=== PATIENT | male | born 1950 | race Caucasian/White ===

== ENCOUNTER 2020-01-03 05:21 | Inpatient (IN) | payer OTHER, MEDICARE ==
[~2020-01-03] VITALS: Ht 175.3 cm; Wt 89.1 kg
[~2020-01-03 05:21] MED LIST: ACET-812 PO; ALLO300T2 PO; ATOR20TA66 PO; FISH12002 PO; LOSA50TA64 PO; NIAC500T23 PO; VIT1CAPS46 PO
[2020-01-03] MEDS ORDERED: normal saline 1000ML IV soln IVB ONE (05:30)
[2020-01-03 05:44] LABS: BASOPHILS # (AUTO) 0.1 X10'3 (0-0.2); BASOPHILS % (AUTO) 0.9 % (0-1); EOSINOPHILS % (AUTO) 0.1 % (0-6); HEMATOCRIT 43.7 % (42.0-52.0); HEMOGLOBIN 14.6 g/dl (14.0-17.9); LYMPHOCYTES # (AUTO) 0.8 X10'3 (1.1-4.8); LYMPHOCYTES % (AUTO) 7.3 % (21-51); MEAN CORPUSCULAR HEMOGLOBIN 32.8 PG (27.0-31.0); MEAN CORPUSCULAR HGB CONC 33.4 g/dL (33.0-36.5); MEAN CORPUSCULAR VOLUME 98.2 FL (78-98); MEAN PLATELET VOLUME 8.5 FL (7.4-10.4); MONOCYTES # (AUTO) 0.6 X10'3 (0-0.9); MONOCYTES % (AUTO) 5.4 % (2-12); NEUTROPHILS # (AUTO) 9.5 X10'3 (1.8-7.7); NEUTROPHILS % (AUTO) 86.3 % (42-75); PLATELET COUNT 174 X10'3 (140-440); RED BLOOD COUNT 4.45 X10'6 (4.70-6.10); RED CELL DISTRIBUTION WIDTH 13.3 % (11.5-14.5)
[2020-01-03 05:56] LABS: ALANINE AMINOTRANSFERASE 212 U/L (12-78); ALBUMIN 4.1 G/DL (3.4-5.0); ALBUMIN/GLOBULIN RATIO 1.3 (1.1-1.5); ALKALINE PHOSPHATASE 131 IU/L (46-116); ANION GAP 9 (8-16); ASPARTATE AMINO TRANSFERASE 265 U/L (10-37); BILIRUBIN,TOTAL 1.6 MG/DL (0.1-1.0); BLOOD UREA NITROGEN 23 MG/DL (7-18); BUN/CREATININE RATIO 18.7 (5.4-32.0); CALCIUM 9.3 MG/DL (8.5-10.1); CHLORIDE 107 MMOL/L (99-107); CREATININE 1.23 MG/DL (0.60-1.10); GLUCOSE 167 MG/DL (70-104); SODIUM 143 MMOL/L (135-145); TOTAL CARBON DIOXIDE 27.3 MMOL/L (24-32); TOTAL PROTEIN 7.2 G/DL (6.4-8.2); eGFR 58 ML/MIN
[2020-01-03] MEDS ORDERED: normal saline 1000ml 1,000 ML IV ONE (06:10)
[2020-01-03 06:24] LABS: LIPASE > 30000 U/L (73-393)
--- NOTE | 2020-01-03 06:36 | NUR ---
Pt states that his pain gets worse when he burps, but it is currently the least amount of pain since it started.
[2020-01-03] MEDS ORDERED: magnesium hydroxide 30ml (MOM) UD suspension PO PRN (07:45)
[2020-01-03] MEDS ORDERED: mag hydrox/Alum hydrox/simeth 30ml oral suspension PO PRN (07:45)
[2020-01-03] MEDS ORDERED: morphine 2 MG/ML inj. syringe IV PRN (07:45)
[2020-01-03] MEDS ORDERED: ondansetron/PF 4mg/2ml inj IV PRN (07:45)
[2020-01-03] MEDS ORDERED: acetaminophen 325mg tablet PO PRN (07:45)
[2020-01-03] MEDS: normal saline 1000ml 1,000 ML IV SCH ×3 (08:42→21:05)
[2020-01-03] MEDS: enoxaparin 40mg/0.4ml syringe SUBCUT SCH (08:42)
--- NOTE | 2020-01-03 12:00 | NUR ---
Patient in room PCU 3012. I have received report from Shay FELIZ and had the opportunity to ask questions and assume patient care.
[2020-01-03] MEDS: morphine 2 MG/ML inj. syringe IV PRN ×2 (12:40→18:49)
[2020-01-03 18:00] VITALS: BP 137/53
--- NOTE | 2020-01-03 18:15 | NUR ---
Patient in room PCU 3012. I have received report from Yoon FELIZ and had the opportunity to ask questions and assume patient care.
--- NOTE | 2020-01-03 18:15 | NUR ---
Problems reprioritized. Patient report given, questions answered & plan of care reviewed with Ledy FELIZ.
[2020-01-04 02:00] VITALS: BP 117/50
[2020-01-04] MEDS: normal saline 1000ml 1,000 ML IV SCH ×3 (05:02→18:44)
--- NOTE | 2020-01-04 06:20 | NUR ---
Problems reprioritized. Patient report given, questions answered & plan of care reviewed with Barb FELIZ.
[2020-01-04 06:45] VITALS: BP 126/56
[2020-01-04 06:48] LABS: BASOPHILS % (AUTO) 0.3 % (0-1); EOSINOPHILS % (AUTO) 0.7 % (0-6); HEMATOCRIT 36.4 % (42.0-52.0); HEMOGLOBIN 12.4 g/dl (14.0-17.9); LYMPHOCYTES # (AUTO) 1.2 X10'3 (1.1-4.8); LYMPHOCYTES % (AUTO) 17.6 % (21-51); MEAN CORPUSCULAR HGB CONC 34.2 g/dL (33.0-36.5); MEAN CORPUSCULAR VOLUME 99.4 FL (78-98); MEAN PLATELET VOLUME 8.8 FL (7.4-10.4); MONOCYTES # (AUTO) 0.6 X10'3 (0-0.9); MONOCYTES % (AUTO) 7.9 % (2-12); NEUTROPHILS # (AUTO) 5.2 X10'3 (1.8-7.7); NEUTROPHILS % (AUTO) 73.5 % (42-75); PLATELET COUNT 140 X10'3 (140-440); RED BLOOD COUNT 3.66 X10'6 (4.70-6.10); RED CELL DISTRIBUTION WIDTH 13.5 % (11.5-14.5); WHITE BLOOD COUNT 7.1 X10'3 (4.5-11.0)
[2020-01-04 07:05] LABS: ALANINE AMINOTRANSFERASE 118 U/L (12-78); ALBUMIN 3.1 G/DL (3.4-5.0); ALBUMIN/GLOBULIN RATIO 1.1 (1.1-1.5); ALKALINE PHOSPHATASE 97 IU/L (46-116); ANION GAP 8 (8-16); ASPARTATE AMINO TRANSFERASE 62 U/L (10-37); BILIRUBIN,TOTAL 0.9 MG/DL (0.1-1.0); BLOOD UREA NITROGEN 13 MG/DL (7-18); BUN/CREATININE RATIO 16.5 (5.4-32.0); CALCIUM 7.9 MG/DL (8.5-10.1); CHLORIDE 112 MMOL/L (99-107); CREATININE 0.79 MG/DL (0.60-1.10); GLUCOSE 104 MG/DL (70-104); POTASSIUM 4.1 MMOL/L (3.5-5.1); SODIUM 145 MMOL/L (135-145); TOTAL CARBON DIOXIDE 25.5 MMOL/L (24-32); TOTAL PROTEIN 5.8 G/DL (6.4-8.2); eGFR > 90 ML/MIN
--- NOTE | 2020-01-04 07:07 | NUR ---
Patient in room U 3012. I have received report from BEHZAD FELIZ and had the opportunity to ask questions and assume patient care. PT SITTING ON SIDE OF BED. DENIES NEEDS, CALL LIGHT IN REACH. Addendum: 01/04/20 at 0708 by Belen Caba RN Amended: Links added.
[2020-01-04] MEDS: enoxaparin 40mg/0.4ml syringe SUBCUT SCH (07:47)
[2020-01-04] MEDS ORDERED: FLU VACC QS2020-21(6MOS UP)/PF 60 MCG/0.5 ML SYRINGE IMVAC ONE (10:00)
[2020-01-04 10:18] LABS: LIPASE 4213 U/L (73-393)
[2020-01-04 11:00] VITALS: BP 138/52
--- NOTE | 2020-01-04 14:53 | NUR ---
Problems reprioritized. Patient report given, questions answered & plan of care reviewed with NATALI Moore RN.
[2020-01-04 15:00] VITALS: BP 137/85
--- NOTE | 2020-01-04 16:18 | NUR ---
Patient in room PCU 3012. I have received report from Belen FELIZ and had the opportunity to ask questions and assume patient care.
[2020-01-04 18:15] VITALS: BP 143/46
--- NOTE | 2020-01-04 18:22 | NUR ---
Patient in room PCU 3012. I have received report from Mile Freeman RN and had the opportunity to ask questions and assume patient care.
--- NOTE | 2020-01-04 18:36 | NUR ---
Problems reprioritized. Patient report given, questions answered & plan of care reviewed with Lia FELIZ.
[2020-01-04] MEDS ORDERED: haloperidol lactate 5mg/ml inj IM PRN (19:15)
[2020-01-04] MEDS ORDERED: LORazepam 2 mg/ml vial IV PRN (19:15)
[2020-01-04] MEDS ORDERED: haloperidol 5mg tablet PO PRN (19:15)
[2020-01-04] MEDS ORDERED: LORazepam 1 MG tablet PO PRN (19:15)
[2020-01-04 22:23] VITALS: BP 112/38
[2020-01-05] MEDS: normal saline 1000ml 1,000 ML IV SCH ×2 (00:03→05:44)
[2020-01-05 02:15] VITALS: BP 109/39
[2020-01-05 06:00] VITALS: BP 129/48
[2020-01-05 06:32] LABS: BASOPHILS % (AUTO) 0.4 % (0-1); EOSINOPHILS # (AUTO) 0.1 X10'3 (0-0.9); EOSINOPHILS % (AUTO) 1.1 % (0-6); HEMATOCRIT 35.6 % (42.0-52.0); LYMPHOCYTES # (AUTO) 1.1 X10'3 (1.1-4.8); LYMPHOCYTES % (AUTO) 17.3 % (21-51); MEAN CORPUSCULAR HEMOGLOBIN 33.1 PG (27.0-31.0); MEAN CORPUSCULAR HGB CONC 33.7 g/dL (33.0-36.5); MEAN CORPUSCULAR VOLUME 98.4 FL (78-98); MEAN PLATELET VOLUME 8.7 FL (7.4-10.4); MONOCYTES # (AUTO) 0.5 X10'3 (0-0.9); MONOCYTES % (AUTO) 8.2 % (2-12); NEUTROPHILS # (AUTO) 4.6 X10'3 (1.8-7.7); PLATELET COUNT 122 X10'3 (140-440); RED BLOOD COUNT 3.62 X10'6 (4.70-6.10); RED CELL DISTRIBUTION WIDTH 13.2 % (11.5-14.5); WHITE BLOOD COUNT 6.3 X10'3 (4.5-11.0)
[2020-01-05 06:56] LABS: ALANINE AMINOTRANSFERASE 80 U/L (12-78); ALBUMIN 3.1 G/DL (3.4-5.0); ALBUMIN/GLOBULIN RATIO 1.1 (1.1-1.5); ALKALINE PHOSPHATASE 88 IU/L (46-116); AMYLASE 193 U/L (25-115); ANION GAP 7 (8-16); ASPARTATE AMINO TRANSFERASE 33 U/L (10-37); BLOOD UREA NITROGEN 8 MG/DL (7-18); BUN/CREATININE RATIO 10.3 (5.4-32.0); CHLORIDE 112 MMOL/L (99-107); CREATININE 0.78 MG/DL (0.60-1.10); GLUCOSE 104 MG/DL (70-104); LIPASE 617 U/L (73-393); PHOSPHORUS 3.2 MG/DL (2.3-4.5); POTASSIUM 3.8 MMOL/L (3.5-5.1); SODIUM 145 MMOL/L (135-145); TOTAL CARBON DIOXIDE 25.6 MMOL/L (24-32); TOTAL PROTEIN 5.8 G/DL (6.4-8.2); eGFR > 90 ML/MIN
--- NOTE | 2020-01-05 06:57 | NUR ---
Problems reprioritized. Patient report given, questions answered & plan of care reviewed with TRINI Maher.
[2020-01-05] MEDS ORDERED: folic acid 1mg tablet PO SCH (08:00)
[2020-01-05] MEDS ORDERED: multivitamins, therapeutics tablet PO SCH (08:00)
[2020-01-05] MEDS ORDERED: thiamine 100mg tablet PO SCH (08:00)
[2020-01-05] MEDS: enoxaparin 40mg/0.4ml syringe SUBCUT SCH (09:37)
[2020-01-05 11:00] VITALS: BP 111/63
== END 2020-01-05 12:28 | disposition home or self-care (01) | DRG 438 ==
LOC: ER 05:21 → ED HOLD 07:43 → EDBEDREQ 10:26 → PCU 3S 11:32
PROVIDERS: ADMIT Family Medicine; ATTEND Family Medicine
DX: K85.90 Acute pancreatitis without necrosis or infection, unspecified (principal); N17.0 Acute kidney failure with tubular necrosis; E78.5 Hyperlipidemia, unspecified; E86.0 Dehydration; F10.10 Alcohol abuse, uncomplicated; K80.20 Calculus of gallbladder without cholecystitis without obstruction
CPT/HCPCS: 36415; 74176; 76700; 80053; 82150; 82948; 83690; 84100; 85025; 85610; 87081; 96374; 99285; G0378; J1650; J2270; J7030; Q2039

== ENCOUNTER 2021-01-27 21:20 | Inpatient (IN) | payer OTHER, MEDICARE ==
[~2021-01-27] VITALS: Ht 175.3 cm; Wt 90.1 kg
[~2021-01-27 21:20] MED LIST changes: -ACET-812 PO; -FISH12002 PO; -LOSA50TA64 PO; -NIAC500T23 PO; -VIT1CAPS46 PO
[2021-01-27 22:32] LABS: BASOPHILS % (AUTO) 0.3 % (0-1); EOSINOPHILS % (AUTO) 0.1 % (0-6); HEMATOCRIT 41.5 % (42.0-52.0); HEMOGLOBIN 14.1 g/dl (14.0-17.9); LYMPHOCYTES # (AUTO) 0.8 X10'3 (1.1-4.8); LYMPHOCYTES % (AUTO) 6.1 % (21-51); MEAN CORPUSCULAR HEMOGLOBIN 32.8 PG (27.0-31.0); MEAN CORPUSCULAR HGB CONC 33.9 g/dL (33.0-36.5); MEAN CORPUSCULAR VOLUME 96.8 FL (78-98); MEAN PLATELET VOLUME 7.7 FL (7.4-10.4); MONOCYTES % (AUTO) 7.5 % (2-12); NEUTROPHILS # (AUTO) 11.2 X10'3 (1.8-7.7); PLATELET COUNT 185 X10'3 (140-440); RED BLOOD COUNT 4.29 X10'6 (4.70-6.10); RED CELL DISTRIBUTION WIDTH 13.4 % (11.5-14.5)
[2021-01-27 22:42] LABS: CLARITY,URINE CLEAR (Clear); COLOR,URINE YELLOW (Yellow); GLUCOSE, URINE NEGATIVE (Neg); KETONES,URINE NEGATIVE (Neg); LEUKOCYTE ESTERASE ,URINE NEGATIVE (Neg); NITRITES, URINE NEGATIVE (Neg); OCCULT BLOOD,URINE NEGATIVE (Neg); PH,URINE 5.5 (4.8-8.0); PROTEIN,URINE NEGATIVE (Neg); UROBILINOGEN,URINE 0.2 E.U/dL (0.2-1.0)
[2021-01-27 22:44] LABS: ALANINE AMINOTRANSFERASE 292 U/L (12-78); ALBUMIN 4.2 G/DL (3.4-5.0); ALBUMIN/GLOBULIN RATIO 1.1 (1.1-1.5); ALKALINE PHOSPHATASE 149 IU/L (46-116); ANION GAP 12 (8-16); ASPARTATE AMINO TRANSFERASE 376 U/L (10-37); BILIRUBIN,TOTAL 1.5 MG/DL (0.1-1.0); BLOOD UREA NITROGEN 23 MG/DL (7-18); BUN/CREATININE RATIO 19.3 (5.4-32.0); CALCIUM 8.9 MG/DL (8.5-10.1); CHLORIDE 105 MMOL/L (99-107); CREATININE 1.19 MG/DL (0.60-1.10); GLUCOSE 172 MG/DL (70-104); SODIUM 143 MMOL/L (135-145); TOTAL CARBON DIOXIDE 26.5 MMOL/L (24-32); TOTAL PROTEIN 8.1 G/DL (6.4-8.2); eGFR 60 ML/MIN
[2021-01-27 22:49] LABS: UA COLLECTION TYPE CLN CATCH MIDSTREAM
[2021-01-27 22:55] LABS: LIPASE > 30000 U/L (73-393)
[2021-01-27] MEDS ORDERED: normal saline 1000ml 1,000 ML IV ONE (23:35)
[2021-01-28] MEDS ORDERED: ampicillin/sulbac 3gm/NS 100ml 100 ML IV ONE (02:16)
[2021-01-28] MEDS ORDERED: ondansetron/PF 4mg/2ml inj IV PRN (03:05)
[2021-01-28] MEDS ORDERED: diphenhydrAMINE 25mg capsule PO PRN (03:05)
[2021-01-28] MEDS ORDERED: morphine 2 MG/ML inj. syringe IV PRN ×2 (03:05)
[2021-01-28] MEDS ORDERED: acetaminophen 325mg tablet PO PRN ×2 (03:05)
[2021-01-28] MEDS ORDERED: HYDROcodone/acetaminophen 5mg/325mg tablet PO PRN (03:05)
[2021-01-28] MEDS: dextrose 5%-1/2 normal saline 1,000 ML IV SCH ×2 (03:05→09:14)
[2021-01-28] MEDS ORDERED: HYDROmorphone inj. 0.5 MG/0.5 ML DISP.SYRIN IV PRN (03:05)
[2021-01-28] MEDS ORDERED: bisacodyl 10mg suppository rectal RC PRN (03:05)
[2021-01-28] MEDS ORDERED: HYDROmorphone/PF 0.2 MG/ML SYRINGE IV PRN (03:05)
[2021-01-28] MEDS ORDERED: mag hydrox/Alum hydrox/simeth 30ml oral suspension PO PRN (03:05)
[2021-01-28] MEDS ORDERED: magnesium hydroxide 30ml (MOM) UD suspension PO PRN (03:05)
[2021-01-28] MEDS ORDERED: ondansetron 4mg rapidly disintigrating tab PO PRN (03:05)
[2021-01-28] MEDS ORDERED: diphenhydrAMINE 50 mg/ml inj IV PRN (03:05)
[2021-01-28 03:37] LABS: MAGNESIUM 2.4 MG/DL (1.5-2.4)
[2021-01-28 03:39] LABS: ALANINE AMINOTRANSFERASE 272 U/L (12-78); ALBUMIN 3.5 G/DL (3.4-5.0); ALBUMIN/GLOBULIN RATIO 1.2 (1.1-1.5); ALKALINE PHOSPHATASE 125 IU/L (46-116); ASPARTATE AMINO TRANSFERASE 225 U/L (10-37); BILIRUBIN,DIRECT 0.2 MG/DL (0-0.3); BILIRUBIN,TOTAL 0.8 MG/DL (0.1-1.0); TOTAL PROTEIN 6.5 G/DL (6.4-8.2)
[2021-01-28 03:40] LABS: HEMOGLOBIN A1C 5.3 % (4.5-6.2)
[2021-01-28] MEDS ORDERED: LOSA25TA96 PO (04:16)
[2021-01-28 04:17] LABS: PARTIAL THROMBOPLASTIN TIME 24 SECONDS (22-32)
[2021-01-28] MEDS: pantoprazole IV 40 MG in dextrose 5%-water 100 ML IV SCH ×2 (08:00→19:57)
[2021-01-28] MEDS: piperacillin/tazo 4.5gm/100ml 100 ML IV SCH ×2 (08:00→16:28)
[2021-01-28] MEDS: docusate sod 100mg capsule PO SCH ×2 (08:00→19:56)
[2021-01-28 11:59] LABS: LIPASE QNS U/L (73-393)
[2021-01-28 16:14] VITALS: BP 145/59
--- NOTE | 2021-01-28 17:33 | NUR ---
Paged Dr. Veras PAGER ID: [phone] MESSAGE: JESSICA Lynn RN ext [phone]. RE: Drake Syed. Just FYI MRCP results shows cholelithiasis. Did we have surgeon consult already? Patient was told he would have surgery
--- NOTE | 2021-01-28 17:58 | NUR ---
Late entry: Before I hooked patient to heart monitor when he arrived to his room, he states "I just want to give you a heads up that my heart rate tends to be low!"
[2021-01-28 18:00] VITALS: BP 134/61
--- NOTE | 2021-01-28 18:27 | NUR ---
Problems reprioritized. Patient report given, questions answered & plan of care reviewed with Prudence RN.
[2021-01-28] MEDS ORDERED: temazepam 15mg capsule PO PRN (21:00)
[2021-01-28 22:00] VITALS: BP 138/72
[2021-01-29] MEDS: piperacillin/tazo 4.5gm/100ml 100 ML IV SCH ×4 (00:05→23:49)
[2021-01-29] MEDS: dextrose 5%-1/2 normal saline 1,000 ML IV SCH ×3 (00:07→17:11)
[2021-01-29 03:00] VITALS: BP 131/71
[2021-01-29 06:14] LABS: BASOPHILS % (AUTO) 0.5 % (0-1); EOSINOPHILS # (AUTO) 0.1 X10'3 (0-0.9); EOSINOPHILS % (AUTO) 1.2 % (0-6); HEMATOCRIT 37.1 % (42.0-52.0); HEMOGLOBIN 12.6 g/dl (14.0-17.9); LYMPHOCYTES # (AUTO) 1.2 X10'3 (1.1-4.8); LYMPHOCYTES % (AUTO) 17.6 % (21-51); MEAN CORPUSCULAR HEMOGLOBIN 33.3 PG (27.0-31.0); MEAN CORPUSCULAR HGB CONC 34.1 g/dL (33.0-36.5); MEAN CORPUSCULAR VOLUME 97.6 FL (78-98); MONOCYTES # (AUTO) 0.6 X10'3 (0-0.9); MONOCYTES % (AUTO) 8.4 % (2-12); NEUTROPHILS # (AUTO) 4.8 X10'3 (1.8-7.7); NEUTROPHILS % (AUTO) 72.3 % (42-75); PLATELET COUNT 133 X10'3 (140-440); RED CELL DISTRIBUTION WIDTH 13.6 % (11.5-14.5); WHITE BLOOD COUNT 6.6 X10'3 (4.5-11.0)
--- NOTE | 2021-01-29 06:18 | NUR ---
Problems reprioritized. Patient report given, questions answered & plan of care reviewed with Alicia FELIZ.
[2021-01-29 06:30] VITALS: BP 127/58
[2021-01-29 06:42] LABS: ALANINE AMINOTRANSFERASE 158 U/L (12-78); ALBUMIN 3.3 G/DL (3.4-5.0); ALBUMIN/GLOBULIN RATIO 1.1 (1.1-1.5); ALKALINE PHOSPHATASE 98 IU/L (46-116); ANION GAP 7 (8-16); ASPARTATE AMINO TRANSFERASE 65 U/L (10-37); BILIRUBIN,TOTAL 1.1 MG/DL (0.1-1.0); BLOOD UREA NITROGEN 10 MG/DL (7-18); BUN/CREATININE RATIO 11.4 (5.4-32.0); CALCIUM 8.3 MG/DL (8.5-10.1); CHLORIDE 107 MMOL/L (99-107); CHOL/HDL RATIO 2.3 (0.00-4.99); CHOLESTEROL 118 MG/DL (0-200); CREATININE 0.88 MG/DL (0.60-1.10); GLUCOSE 132 MG/DL (70-104); HDL CHOLESTEROL 51 MG/DL (35-60); LDL CHOLESTEROL 53 MG/DL (50-100); POTASSIUM 3.6 MMOL/L (3.5-5.1); SODIUM 139 MMOL/L (135-145); TOTAL CARBON DIOXIDE 24.7 MMOL/L (24-32); TOTAL PROTEIN 6.2 G/DL (6.4-8.2); TRIGLYCERIDES 56 MG/DL (20-135); eGFR 85 ML/MIN
[2021-01-29] MEDS: pantoprazole IV 40 MG in dextrose 5%-water 100 ML IV SCH ×2 (08:50→19:12)
[2021-01-29] MEDS: docusate sod 100mg capsule PO SCH ×2 (08:52→19:12)
[2021-01-29] MEDS: HYDROcodone/acetaminophen 10/325mg tab PO PRN (08:56)
--- NOTE | 2021-01-29 09:22 | NUR ---
PAGER ID: [phone] MESSAGE: Drake Syed [id number] Pt. upset. has Cecy plans and wants to know what his medical plan is. Did you want another lipase? last one [id number]. Is pt. going to see GI MD or surgeon? Thank you! mukesh [phone]
--- NOTE | 2021-01-29 09:43 | NUR ---
Hospitalist rounded on pt. in room at bedside. MD states she has spoke to [facility] for a surgical consult and that she is not sure if pt. will need a GI MD consult at this time. Explained to pt. POC, and pt. had the opportunity to ask questions. Labs ordered by hospitalist.
[2021-01-29 10:00] VITALS: BP 120/57
[2021-01-29 10:45] LABS: LIPASE 3215 U/L (73-393)
[2021-01-29 14:00] VITALS: BP 104/59
--- NOTE | 2021-01-29 15:30 | NUR ---
PAGER ID: [phone] MESSAGE: Drake Syed [id number] Tele order is 24h and expires now. Pt. has been sinus audelia. Would you like to continue tele monitoring? Alicia [phone]
[2021-01-29 18:00] VITALS: BP 134/62
--- NOTE | 2021-01-29 18:19 | NUR ---
GAVE REPORT TO FRANKLIN FELIZ AND VICTORINA FELIZ.
--- NOTE | 2021-01-29 18:39 | NUR ---
Patient in room MED 308. I have received report from MARTHA FELIZ and had the opportunity to ask questions and assume patient care.
[2021-01-29 22:00] VITALS: BP 124/63
[2021-01-30] VITALS (20 sets, daily range): BP systolic 108–156; BP diastolic 43–72
[2021-01-30] MEDS: dextrose 5%-1/2 normal saline 1,000 ML IV SCH ×3 (03:57→20:38)
--- NOTE | 2021-01-30 06:21 | NUR ---
Problems reprioritized. Patient report given, questions answered & plan of care reviewed with MARTHA FELIZ.
[2021-01-30 06:52] LABS: BASOPHILS % (AUTO) 0.4 % (0-1); EOSINOPHILS # (AUTO) 0.1 X10'3 (0-0.9); HEMATOCRIT 37.8 % (42.0-52.0); HEMOGLOBIN 12.8 g/dl (14.0-17.9); LYMPHOCYTES # (AUTO) 1.1 X10'3 (1.1-4.8); LYMPHOCYTES % (AUTO) 19.3 % (21-51); MEAN CORPUSCULAR HEMOGLOBIN 33.1 PG (27.0-31.0); MEAN CORPUSCULAR HGB CONC 33.9 g/dL (33.0-36.5); MEAN CORPUSCULAR VOLUME 97.8 FL (78-98); MEAN PLATELET VOLUME 8.1 FL (7.4-10.4); MONOCYTES # (AUTO) 0.5 X10'3 (0-0.9); MONOCYTES % (AUTO) 9.4 % (2-12); NEUTROPHILS # (AUTO) 3.9 X10'3 (1.8-7.7); NEUTROPHILS % (AUTO) 68.9 % (42-75); PLATELET COUNT 131 X10'3 (140-440); RED BLOOD COUNT 3.87 X10'6 (4.70-6.10); RED CELL DISTRIBUTION WIDTH 13.1 % (11.5-14.5); WHITE BLOOD COUNT 5.6 X10'3 (4.5-11.0)
[2021-01-30] MEDS ORDERED: BUPIVAcaine/PF 2.5 mg/ml (0.25%) 30ml vial ONE (07:20)
[2021-01-30 07:27] LABS: ALANINE AMINOTRANSFERASE 115 U/L (12-78); ALBUMIN 3.4 G/DL (3.4-5.0); ALBUMIN/GLOBULIN RATIO 1.2 (1.1-1.5); ALKALINE PHOSPHATASE 87 IU/L (46-116); ANION GAP 11 (8-16); ASPARTATE AMINO TRANSFERASE 40 U/L (10-37); BILIRUBIN,DIRECT 0.3 MG/DL (0-0.3); BILIRUBIN,TOTAL 1.2 MG/DL (0.1-1.0); BLOOD UREA NITROGEN 9 MG/DL (7-18); BUN/CREATININE RATIO 9.2 (5.4-32.0); CALCIUM 8.1 MG/DL (8.5-10.1); CHLORIDE 108 MMOL/L (99-107); CREATININE 0.98 MG/DL (0.60-1.10); GLUCOSE 108 MG/DL (70-104); POTASSIUM 3.5 MMOL/L (3.5-5.1); SODIUM 144 MMOL/L (135-145); TOTAL CARBON DIOXIDE 25.3 MMOL/L (24-32); TOTAL PROTEIN 6.3 G/DL (6.4-8.2); eGFR 75 ML/MIN
[2021-01-30] MEDS: piperacillin/tazo 4.5gm/100ml 100 ML IV SCH ×3 (07:27→17:08)
[2021-01-30] MEDS: docusate sod 100mg capsule PO SCH ×2 (07:27→19:48)
[2021-01-30] MEDS: pantoprazole IV 40 MG in dextrose 5%-water 100 ML IV SCH ×2 (07:27→08:00)
[2021-01-30 07:28] LABS: LIPASE 1540 U/L (73-393)
--- NOTE | 2021-01-30 07:47 | NUR ---
Pt. taken down to OR by staff. plts. low and no working IV. Clarisse in OR notified. IV supplies, protonix, and zosyn sent down to OR with pt. Clarisse aware.
[2021-01-30] MEDS ORDERED: midazolam 1 mg/ML 2ml injection ONE (08:13)
[2021-01-30] MEDS ORDERED: fentaNYL/PF 50MCG/1 ML 2ML syringe ONE ×2 (08:13→08:46)
[2021-01-30] MEDS ORDERED: rocuronium 10mg/ml inj IV ONE (08:13)
[2021-01-30] MEDS ORDERED: propofol inj 20 ML IV ONE (08:13)
[2021-01-30] MEDS ORDERED: proCHLORperazine 10 MG/2 ml inj IV PRN (08:40)
[2021-01-30] MEDS ORDERED: morphine 4 MG/ML inj SYRINge IV PRN (08:40)
[2021-01-30] MEDS ORDERED: ringers solution, lacted 1,000 ML IV SCH (08:40)
[2021-01-30] MEDS ORDERED: morphine 2 MG/ML inj. syringe IV PRN (08:40)
[2021-01-30] MEDS ORDERED: meperidine/PF 25mg/ml syringe IV PRN ×3 (08:40)
[2021-01-30] MEDS ORDERED: ondansetron/PF 4mg/2ml inj IV PRN (08:40)
[2021-01-30] MEDS ORDERED: glycopyrrolate 0.2mg/ml inj ONE (09:45)
[2021-01-30] MEDS ORDERED: neostigmine methylsulfate 1 MG/ML 10ml vial ONE (09:45)
--- NOTE | 2021-01-30 09:55 | NUR ---
Received from OR via , accompanied by Anesthesiologist DR MORLEY and report given by Anesthesiolgist. PT WAKES TO VOICE, SKIN WARM AND PINK, NO C/O PAIN, MOVES EXT X 4, ABD HAS LAP SITES WITH LEVY AND STERI-STRIPS CD, SCD'S, PIV LEFT HAND 20G WITH LR 100.
--- NOTE | 2021-01-30 10:35 | NUR ---
Report called to receiving nurse. Transferred via BED Belongings . Special Issues communicated to receiving nurse MARTHA FELIZ. PT IS AWAKE ALERT, MOVING EXT X 4, NO C/O PAIN, LAP SITES CD, PIV PATENT, SCD'S ON, VSS, AT BS, RJ WATER, PT MEETS DISCHARE CRITERIA.
--- NOTE | 2021-01-30 10:50 | NUR ---
Pt. arrived to floor. Awake and alert placed on Post op VS. at bedside. Pt. states no pain.
[2021-01-30] MEDS: HYDROcodone/acetaminophen 10/325mg tab PO PRN ×2 (12:48→19:48)
--- NOTE | 2021-01-30 13:57 | NUR ---
Pt. ambulated well. Tolerating CL diet. Minimal pain, controlled with oral pain medication. Hydrating well PO and IV. Called [facility] for possible discharge.
--- NOTE | 2021-01-30 18:23 | NUR ---
GAVE REPORT TO PRUDENCE RN
--- NOTE | 2021-01-30 18:46 | NUR ---
Patient in room MED 308. I have received report from MARTHA FELIZ and had the opportunity to ask questions and assume patient care.
[2021-01-31] MEDS: piperacillin/tazo 4.5gm/100ml 100 ML IV SCH ×2 (00:15→08:01)
[2021-01-31 02:56] VITALS: BP 119/44
[2021-01-31] MEDS: dextrose 5%-1/2 normal saline 1,000 ML IV SCH (05:52)
--- NOTE | 2021-01-31 06:22 | NUR ---
Problems reprioritized. Patient report given, questions answered & plan of care reviewed with LUC FELIZ.
[2021-01-31 07:04] LABS: ALANINE AMINOTRANSFERASE 90 U/L (12-78); ALBUMIN 3.1 G/DL (3.4-5.0); ALBUMIN/GLOBULIN RATIO 1.1 (1.1-1.5); ALKALINE PHOSPHATASE 79 IU/L (46-116); ANION GAP 8 (8-16); ASPARTATE AMINO TRANSFERASE 35 U/L (10-37); BASOPHILS % (AUTO) 0.2 % (0-1); BILIRUBIN,DIRECT 0.3 MG/DL (0-0.3); BILIRUBIN,TOTAL 1.5 MG/DL (0.1-1.0); BLOOD UREA NITROGEN 5 MG/DL (7-18); BUN/CREATININE RATIO 4.8 (5.4-32.0); CALCIUM 8.2 MG/DL (8.5-10.1); CHLORIDE 105 MMOL/L (99-107); CREATININE 1.04 MG/DL (0.60-1.10); EOSINOPHILS # (AUTO) 0.1 X10'3 (0-0.9); EOSINOPHILS % (AUTO) 0.8 % (0-6); GLUCOSE 118 MG/DL (70-104); HEMATOCRIT 34.9 % (42.0-52.0); HEMOGLOBIN 12.1 g/dl (14.0-17.9); LIPASE 474 U/L (73-393); LYMPHOCYTES % (AUTO) 13.4 % (21-51); MEAN CORPUSCULAR HEMOGLOBIN 33.6 PG (27.0-31.0); MEAN CORPUSCULAR HGB CONC 34.7 g/dL (33.0-36.5); MEAN CORPUSCULAR VOLUME 96.8 FL (78-98); MEAN PLATELET VOLUME 8.1 FL (7.4-10.4); MONOCYTES # (AUTO) 0.7 X10'3 (0-0.9); MONOCYTES % (AUTO) 8.8 % (2-12); NEUTROPHILS % (AUTO) 76.8 % (42-75); PLATELET COUNT 124 X10'3 (140-440); POTASSIUM 3.6 MMOL/L (3.5-5.1); RED CELL DISTRIBUTION WIDTH 13.4 % (11.5-14.5); SODIUM 141 MMOL/L (135-145); TOTAL CARBON DIOXIDE 28.3 MMOL/L (24-32); TOTAL PROTEIN 5.9 G/DL (6.4-8.2); WHITE BLOOD COUNT 7.8 X10'3 (4.5-11.0); eGFR 70 ML/MIN
[2021-01-31 07:10] VITALS: BP 117/51
[2021-01-31] MEDS: pantoprazole IV 40 MG in dextrose 5%-water 100 ML IV SCH (08:01)
[2021-01-31] MEDS: docusate sod 100mg capsule PO SCH (08:01)
[2021-01-31 10:33] VITALS: BP 144/64
--- NOTE | 2021-01-31 13:29 | NUR ---
patient stable and appropriate for discharge home. 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 all belongings taken from room. No new prescriptions. All discharge instructions and education given and reviewed with patient, all questions answered
== END 2021-01-31 13:23 | disposition home or self-care (01) | DRG 418 ==
LOC: ER 21:21 → ED HOLD 01-28 03:06 → MED 3N 01-28 15:00
PROVIDERS: ADMIT Family Medicine; ATTEND Internal Medicine
PROC: 0FT44ZZ Resection of Gallbladder, Percutaneous Endoscopic Approach (ICD-10-PCS; principal; 2021-01-30 08:09)
DX: K85.10 Biliary acute pancreatitis without necrosis or infection (principal); N17.9 Acute kidney failure, unspecified; K83.09 Other cholangitis; K80.12 Calculus of gallbladder with acute and chronic cholecystitis without obstruction; Z20.822 Contact with and (suspected) exposure to COVID-19; E78.5 Hyperlipidemia, unspecified; R74.01 Elevation of levels of liver transaminase levels; I10 Essential (primary) hypertension; K57.30 Diverticulosis of large intestine without perforation or abscess without bleeding; M10.9 Gout, unspecified; Z79.899 Other long term (current) drug therapy
CPT/HCPCS: 99285; Z7506; Z7508; 36415; 74176; 74181; 76700; 80053; 80061; 80076; 81003; 82248; 82948; 83036; 83690; 83735; 83880; 84100; 85025; 85610; 85730; 87081; 87635; 93005; A4215; A4618; A7000; C9113; G0378; J0295; J2250; J2543; J2704; J2710; J3010; J3490; J7030; J7042; J7060; J7120